=== PATIENT | female | born 1985 | race Two or more races ===

== ENCOUNTER 2023-02-11 05:49 | Day surgery (SDC) | payer OTHER ==
[~2023-02-11] VITALS: Ht 160 cm; Wt 76.2 kg
== END 2023-02-11 16:30 | disposition home or self-care (01) ==
LOC: CIR.AMB 05:49
PROVIDERS: ATTEND Orthopaedic Surgery
DX: S42.321A Displaced transverse fracture of shaft of humerus, right arm, initial encounter for closed fracture (principal); Z20.822 Contact with and (suspected) exposure to COVID-19
CPT/HCPCS: 24516; L8699

== ENCOUNTER 2023-02-20 11:53 | Outpatient (CLI) | payer OTHER | END 2023-02-20 11:56 | disposition home or self-care (01) | LOC: LAB 11:53 | PROVIDERS: ATTEND Orthopaedic Surgery | DX: M85.9 Disorder of bone density and structure, unspecified (principal); E83.42 Hypomagnesemia; E56.1 Deficiency of vitamin K ==